=== PATIENT | female | born 1970 | race Asian ===

== ENCOUNTER 2018-05-03 11:35 | Outpatient (REF) | payer BC, SELFPAY ==
[2018-05-03 12:44] LABS: ALT 19 U/L (12-78); AST 17 U/L (15-37); Albumin 3.6 g/dL (3.4-5.0); Alkaline Phosphatase 65 U/L (46-116); Anion Gap 7.3 mmol/L (3-11); BUN 15 mg/dL (7-18); Bilirubin, Total 0.4 mg/dL (0.2-1.0); CO2 28.7 mmol/L (21.0-32.0); CREATININE 0.73 mg/dL (0.55-1.02); Calcium 9.1 mg/dL (8.5-10.1); Chloride 106 mmol/L (98-107); Glucose 86 mg/dL (70-100); Sodium 142 mmol/L (136-145); Total Protein 7.3 g/dL (6.4-8.2)
[2018-05-04 10:31] LABS: Hepatitis C Ab w Rflx HCV PCR Negative (NEGAT)
[2018-05-04 11:15] LABS: HIV-1/2 Ag & Ab Screen Negative (NEGAT)
[2018-05-04 11:18] LABS: Hepatitis B Surface Ag Negative (NEGAT)
[2018-05-04 11:22] LABS: HBs Antibody, Quant 37.7 mIU/mL; Hepatitis B Surface Ab Positive
[2018-05-05 10:35] LABS: Hepatitis A IgM Ab Negative (Negative)
== END 2018-05-03 11:55 ==
LOC: NCHCN 11:35
PROVIDERS: PCP Nurse Practitioner; Visit Provider Nurse Practitioner
DX: Z11.59 Encounter for screening for other viral diseases (principal); Z11.4 Encounter for screening for human immunodeficiency virus [HIV]; Z13.228 Encounter for screening for other metabolic disorders
CPT/HCPCS: 80053; 86706; 86803; 87340; 87389; 86709

== ENCOUNTER 2018-11-06 08:52 | Outpatient (REF) | payer BC, SELFPAY ==
--- NOTE | 2018-11-06 08:15 | PAPFT_PTH ---
PATIENT: Nate Trevizo LOC: [facility] U#:[id number] AGE/SX: 48/F ROOM: RE11/06/[address]: REJI Rodriguez : 1970 BED: DIS: 11/06/2018 SPEC #: [id number] RECD: 11/06/18 13:04 STATUS: MARIANNEVaishali REJolie #: [id number] AMBER: 11/06/18 08:[address]: Laura Lloyd DEPT: [facility] Cytology RECD BY: Karine Woodard ENTERED: 11/06/18 13:04 SP TYPE: PAPFT OTHR DR: Angela Apple Tissues: 1 - CX/ENDOCX FOR PAP SMEARS Procedures: PAP THIN PREP/UVM Screening HPV DNA PROBE Comments: [id number]
== END 2018-11-06 09:12 ==
LOC: LBN 08:52
PROVIDERS: PCP Nurse Practitioner; Visit Provider Nurse Practitioner Family
DX: Z12.4 Encounter for screening for malignant neoplasm of cervix (principal); Z11.51 Encounter for screening for human papillomavirus (HPV)
CPT/HCPCS: 88142; 87624

== ENCOUNTER 2019-04-23 10:23 | Outpatient (REF) | payer BC, SELFPAY | END 2019-04-23 10:43 | LOC: LBN 10:23 | PROVIDERS: PCP Nurse Practitioner; Visit Provider Nurse Practitioner Family | DX: R30.0 Dysuria (principal) | CPT/HCPCS: 87086 ==

== ENCOUNTER 2019-05-01 02:07 | Outpatient (CLI) | payer BC, SELFPAY ==
--- NOTE | 2019-05-01 11:55 | DI.MAMMO_ITS ---
EXAM: MG MAMMO SCREENING CLINICAL HISTORY: SCREENING, Z12.39. TECHNIQUE: Bilateral full field digital CC and MLO mammographic images were obtained with 3D tomosyn thesis and utilizing computer aided detection (CAD). COMPARISON: Available for comparison. FINDINGS: Masses/Architectural Distortion: None seen. Microcalcifications: No suspicious pleomorphic-type are seen. Skin Thickening/Nipple Retraction: None. IMPRESSION: 1. No significant interval change with no specific features of malignancy noted. 2. Unless there is more urgent need, screening mammography is recommended, as per [employer] guidelines. ACR BI-RAD Category- 1 Negative Breast Density - Category C - Heterogeneously dense The mammogram demonstrates the patient's breast tissue is dense. Dense breast tissue is very common a nd is not abnormal but dense breast tissue can make it harder to find cancer on a mammogram. Also, de nse breast tissue may increase their breast cancer risk. This information about the result of the [facility] mogram report was provided to the patient to raise their awareness. Use this report when you speak wi th the patient about their risks for breast cancer, which includes their family history. At that time , you may recommend for more screening tests (Ultrasound or MRI) as they might be useful based on the ir risk. A negative radiographic report should not delay biopsy if a dominant or clinically suspicious mass is present. Up to ten percent of cancers are not identified on mammography. A negative report may reinforce clinical impression. Adenosis and dense breasts may obscure an underlying neoplasm. False positive reports average 6 to 10%. Patient will receive a letter notifying them of these results.
== END 2019-05-01 02:27 ==
PROVIDERS: PCP Nurse Practitioner; Visit Provider Nurse Practitioner
DX: Z12.31 Encounter for screening mammogram for malignant neoplasm of breast (principal)
CPT/HCPCS: 77063; 77067

== ENCOUNTER 2020-05-07 12:07 | Outpatient (REF) | payer BC, SELFPAY ==
[2020-05-07 16:05] LABS: HCT 39.1 % (36.0-46.0); HGB 13.4 g/dL (11.2-15.7); MCHC 34.3 % (32.0-36.0); MCV 90.5 fL (80-95); MPV 11.3 fL (8.0-11.0); Platelet Count 212 10^3/uL (130-400); RBC 4.32 10^6/uL (3.93-5.22); RDW 12.2 % (11.7-14.6); RDW-SD 40.5 fL; WBC 4.91 10^3/uL (4.4-10.8)
[2020-05-07 16:25] LABS: TSH (W/Ref FT4) 1.51 uIU/mL (0.36-3.74)
[2020-05-07 16:41] LABS: Hemoglobin A1C 5.9 % (<5.7)
== END 2020-05-07 12:08 | disposition home or self-care (01) ==
LOC: NCHCN 12:07
PROVIDERS: PCP Nurse Practitioner; Visit Provider Nurse Practitioner
DX: L65.9 Nonscarring hair loss, unspecified (principal); R73.03 Prediabetes
CPT/HCPCS: 85027; 83036; 84443

== ENCOUNTER 2020-09-04 07:21 | Day surgery (SDC) | payer BC, SELFPAY ==
[2020-09-04 07:44] VITALS: BP 114/71; PULSE 68; RESP 16; TEMP 36.2; O2SAT 98
[2020-09-04] MEDS: Lactated Ringers 1,000 ML 80 ML IV (08:00)
--- NOTE | 2020-09-04 08:32 | W.ANESPRE ---
General Info Date of Service Date Performed: 09/04/20 Height: 5 ft 2 in Weight: 57.4 kg Body Mass Index (BMI): 23.1 Surgical Procedure: Operation Date: 09/04/20 08:35 Proposed Procedures Side Surgeon p Seferino Mendoza MD Meds Allergies and Home Medications Allergies Allergy/AdvReac Type Severity Reaction Status Date / Time No Known Allergies Allergy Verified 09/04/20 07:35 Home Medication Medication Instructions Recorded medroxyprogesterone 150 mg/mL 150 mg IM 12weeks #1 syringe 03/31/20 intramuscular suspension bisacodyl 5 mg tablet,delayed 5 mg PO ONCE #4 tab 08/28/20 release polyethylene glycol 3350 17 238 g PO ONCE #238 g 08/28/20 gram/dose oral powder Current Visit Medications: Current Medications Generic Name Dose Route Start Last Admin Trade Name Freq PRN Reason Stop Dose Admin Ringer's Solution 1,000 mls @ 80 mls/hr 09/04/20 06:00 09/04/20 08:00 IV 10/03/20 23:59 80 mls/hr INFUSION PAUL Administration IV Miscellaneous Supplies 1 each 09/04/20 06:00 Iv Access IV 10/03/20 23:59 DIRECTED PAUL Sodium Chloride 0 ml 09/04/20 06:00 Normal Saline Flush 10 Ml Syr IV 10/03/20 23:59 PRN PRN Sodium Chloride 0 ml 09/04/20 06:00 Normal Saline 10 Ml Vial IJ 10/03/20 23:59 DIRECTED PRN Sterile Water 0 ml 09/04/20 06:00 Water,Injection,Sterile 10 Ml Vial IJ 10/03/20 23:59 DIRECTED PRN PFSH Active Problems Active Problems: Problem Status Onset Code Prediabetes R73.03 Screening for colon cancer Z12.11 Contraceptive surveillance 06/03/14 Z30.40 Asymptomatic varicose veins of both lower extremities 10/24/17 I83.93 Medical History Medical History Asymptomatic varicose veins of both lower extremities (10/24/17) Contraceptive surveillance (06/03/14) Tobacco Smoking/Tobacco Use Status: Never Alcohol Alcohol Intake: never Substance Use Substance use type: does not use Prental History History 2 Para Hx # Term Pregnancies 2 Multiple births Hx # Pregnancies Ectopic pregnancies AB induced Hx Number of Living Children AB spontaneous Vital Signs and Lab Results Vital Signs Most Recent Vital Signs in EMR: Most Recent Vital Signs Temp Pulse Resp BP Pulse Ox 36.2 C L 68 16 114/71 98 09/04/20 07:44 09/04/20 07:44 09/04/20 07:44 09/04/20 07:44 09/04/20 07:44 Point of Care Results Point of Care Results: POC- Test(urine) Negative 09/04/20 08:07 Lab Results Blood Type / Crossmatch: No Data to Display Complete Blood Count: No Data to Display Complete Metabolic Panel: No Data to Display Liver Function Panel: No Data to Display Coagulation Panel: No Data to Display Cardiac Panel: No Data to Display Arterial Blood Gas: No Data to Display Venous Blood Gas: No Data to Display Pancreas Panel: No Data to Display Thyroid Panel: No Data to Display Infectious Disease: No Data to Display Blood Cultures: No Data to Display Toxicology Panel: No Data to Display Panel: No Data to Display Anesthesia Assessment and Plan Anesthesia History Personal History: No History of Anesthesia Complications Family History: No Family History of Anesthesia Complications Exercise Tolerance Exercise Tolerance: Metabolic Equivalents>4 Pertinent Negatives Pertinent Negatives: No Symptoms of GERD Cardiac & Pulmonary Exam Cardiac Exam: Normal S1/S2 Heart Sounds Pulmonary Exam: Clear Bilateral Breath Sounds Airway Exam Known Difficult Airway: No Mallampati Class: 3 Mouth Opening: Normal (> 3cm) Thyromental Distance: Greater than 3 cm Neck Range of Motion: Full ROM Neck Circumference: Normal Teeth Condition: Normal Dentition ASA Classification ASA Score: ASA 2 Emergency Case?: No NPO Status NPO Status: NPO Clears >2 hours, Solids >8 hours Status Status: Negative HCG Anesthesia Plan Resuscitation Status: Full Code Anesthesia Technique: General Anesthesia Airway Planned: Natural Airway Monitors Used: Standard Monitors
[2020-09-04 08:36] VITALS: BMI 23.1
--- NOTE | 2020-09-04 08:52 | NUR.NOTE ---
Nursing Note: 0845 MD and Anesthesia in patient room to discuss procedure. Language line initiated again; however Togolese dialect/library paraprofessional accent not clearly understood by patient. Patient able to converse to an extent in Turkish to answer questions; and spouse in room as well. Patient shook head in understanding then signed consent with MD and anesthesia.
[2020-09-04 09:47] VITALS: BP 102/65; PULSE 62; RESP 16; TEMP 36.3; O2SAT 95
--- NOTE | 2020-09-04 09:49 | W.ANESPOSTOP ---
Postoperative Evaluation Date, Time and Location Date Performed: 09/04/20 Time Performed: 09:51 Patient Location: Day Surgery Unit Vital Signs Most Recent Imported Vital Signs: Most Recent Vital Signs Temp Pulse Resp BP Pulse Ox 36.2 C L 68 16 114/71 98 09/04/20 07:44 09/04/20 07:44 09/04/20 07:44 09/04/20 07:44 09/04/20 07:44 Most Recent Manually Entered Vital Signs: Adult Blood Pressure: 102/65 Heart Rate: 63 Respirations: 16 Oxygen Saturation (%): 95 Temperature (C): 36.3 C Pain Score (0-10 Scale): 0 Pain Score Most Recent Pain Score: Most Recent Pain Score Pain Level 0 09/04/20 07:44 Assessment Mental Status: Awake (Alert & Oriented to Patient Baseline) Airway and Respiratory Function: Patent airway with normal (patient baseline) respiratory exam Cardiovascular Function: Hemodynamically Stable Hydration Status: Adequately Hydrated Nausea & Vomiting: No Nausea or Vomiting Pain: Pt. Denies Any Pain Peripheral Nerve Block: Patient did not receive a nerve block
[2020-09-04 09:53] VITALS: BP 102/65; PULSE 63; RESP 16; TEMPC 36.3; O2SAT 95
--- NOTE | 2020-09-04 09:56 | W.COLOREPORT ---
Date of service: 09/04/20 Time of Service: 09:56 Colonoscopy Report Date of procedure: 09/04/20 Pre-op diagnosis general: colorectal cancer screening Post-op diagnosis procedure note: same Procedure: Colonoscopy Surgeon: Micheal Mendoza Anesthesia Type: MAC Estimated blood loss (mL): 0 Pathology: none sent Complications: None Disposition: same day Indications: 50yo female here for first colonoscopy. No complaints of bleeding, abdominal pain, weight loss, or change in bowel habits. She denies family history of colon cancer. Prep: Miralax/Dulcolax Retraction Time: >15 minute Findings: A subcentimeter polyp was seen on entry, but could not be found again on withdrawal. Procedure Description: After informed consent was obtained, the patient was taken to the procedure room and placed in a left decubitus position. Monitors were applied and a time out was done. The patient's name, date of , procedure, allergies to medications, and metal in their body were reviewed. The patient was then sedated. Once sedated and comfortable, a digital rectal exam was done. External exam showed a normal anus. Internal exam revealed normal sphincter tone, and no palpable masses or gross blood. The colonoscope was then introduced and advanced to the cecum under direct visualization with minimal difficulty, some manual abdominal pressure was applied. A small subcentimeter polyp was seen in the left colon on entry. In the cecum, the ileocecal valve and appendiceal orifice were visualized. The prep was good. The scope was then slowly withdrawn over 15 minutes in a circumferential manner to the rectum. In doing so, the previously seen polyp could not be identified, even with multiple passes over the area of interest. There was no diverticulosis noted. The mucosa is pink and healthy. In the rectum, the scope was retroflexed, and no internal hemorrhoids were noted. The scope was straightened and withdrawn from the anus. The patient tolerated the procedure well, and there were no immediate complications. The patient was taken to the Day Surgery Unit recovery area in good condition. Follow up: 3 years, or new symptoms
[2020-09-04 10:13] VITALS: BP 112/69; PULSE 66; RESP 16; TEMP 36.4; O2SAT 99
== END 2020-09-04 10:25 | disposition home or self-care (01) ==
PROVIDERS: PCP Nurse Practitioner; Visit Provider Surgery
PROC: 0DJD8ZZ Inspection of Lower Intestinal Tract, Via Natural or Artificial Opening Endoscopic (ICD-10-PCS; CPT 45378; principal; 2020-09-04 08:30)
DX: Z12.11 Encounter for screening for malignant neoplasm of colon (principal); R73.03 Prediabetes; K63.5 Polyp of colon
CPT/HCPCS: 45378; 81025

== ENCOUNTER 2021-03-19 03:08 | Outpatient (CLI) | payer BC, SELFPAY ==
--- NOTE | 2021-03-19 08:00 | DI.MAMMO_ITS ---
Exam(s) MAMMO SCREENING EXAM: MAMMO SCREENING CLINICAL HISTORY: screening TECHNIQUE: Bilateral full field digital CC and MLO mammographic images were obtained with 3D tomosyn thesis and utilizing computer aided detection (CAD). COMPARISON: Available for comparison. FINDINGS: Masses/Architectural Distortion: None seen. Microcalcifications: No suspicious pleomorphic-type are seen. Skin Thickening/Nipple Retraction: None. IMPRESSION: 1. No significant interval change with no specific features of malignancy noted. 2. Unless there is more urgent need, screening mammography is recommended, as per [employer] guidelines. BI-RADS Category 1 - Negative Breast Density - Category C - Heterogeneously dense Breast density category C or D implies that the patient has dense breast tissue. Dense breast tissue is very common and is not abnormal but dense breast tissue can make it harder to find cancer on a ma mmogram. Also, dense breast tissue may increase their breast cancer risk. This information about the result of the mammogram report was provided to the patient to raise their awareness. Use this report when you speak with the patient about their risks for breast cancer, which includes their family hist ory. At that time, you may recommend for more screening tests (Ultrasound or MRI) as they might be us eful based on their risk. A negative radiographic report should not delay biopsy if a dominant or clinically suspicious mass is present. Up to ten percent of cancers are not identified on mammography. A negative report may reinforce clinical impression. Adenosis and dense breasts may obscure an underlying neoplasm. False positive reports average 6 to 10%. Patient will receive a letter notifying them of these results.
== END 2021-03-19 03:28 ==
PROVIDERS: PCP Nurse Practitioner; Visit Provider Nurse Practitioner Family
DX: Z12.31 Encounter for screening mammogram for malignant neoplasm of breast (principal); R92.8 Other abnormal and inconclusive findings on diagnostic imaging of breast
CPT/HCPCS: 77063; 77067

== ENCOUNTER 2022-03-30 14:50 | Outpatient (REF) | payer BC, SELFPAY ==
--- NOTE | 2022-03-30 14:20 | PAPFT_PTH ---
PATIENT: Nate Trevizo LOC: [facility] U#:[id number] AGE/SX: 51/F ROOM: RE03/30/[address]: Anne Sparks NP : 1970 BED: DIS: 03/30/2022 SPEC #: [id number] RECD: 03/30/22 15:11 STATUS: JULIOCESAR CORLEY #: [id number] AMBER: 03/30/22 14:[address]: Anne Sparks NP DEPT: [facility] Cytology RECD BY: Karine Woodard ENTERED: 03/30/22 15:12 SP TYPE: PAPFT OTHR DR: Angela Apple Tissues: 1 - CX/ENDOCX FOR PAP SMEARS Procedures: PAP THIN PREP/UVM Screening HPV DNA PROBE Comments: [id number]
== END 2022-03-30 14:51 | disposition home or self-care (01) ==
LOC: LBN 14:50
PROVIDERS: PCP Nurse Practitioner; Visit Provider Nurse Practitioner Women's Health
DX: Z12.4 Encounter for screening for malignant neoplasm of cervix (principal); Z11.51 Encounter for screening for human papillomavirus (HPV)
CPT/HCPCS: 88142; 87624

== ENCOUNTER 2022-04-14 02:47 | Outpatient (CLI) | payer BC, SELFPAY ==
--- NOTE | 2022-04-14 08:30 | DI.MAMMO_ITS ---
Exam(s) MAMMO SCREENING EXAM: MAMMO SCREENING CLINICAL HISTORY: screening TECHNIQUE: Mammograms were interpreted according to the usual protocol including computer analysis w [employer] CAD system, tomosynthesis and C-view imaging. COMPARISON: 2014 through 2021 FINDINGS: The breasts are composed of heterogeneously dense fibroglandular densities, Breast Density category C . No suspicious masses or suspicious microcalcifications are seen. No skin thickening or abnormal axillary lymph nodes are seen. There has been no significant change from prior exams. IMPRESSION: BI-RADS Category 1, Negative mammogram. Yearly screening mammography is recommended. Breast Density Category C, heterogeneously Dense. The mammogram demonstrates the patient's breast tissue is dense. Dense breast tissue is very common a nd is not abnormal but dense breast tissue can make it harder to find cancer on a mammogram. Also, de nse breast tissue may increase breast cancer risk. This information about the result of the mammogram report was provided to the patient to raise their awareness. Use this report when you speak with the patient about their risks for breast cancer, which includes their family history. At that time, you may recommend additional screening tests (Ultrasound or MRI) as they might be useful based on their r isk. A negative radiographic report should not delay biopsy if a dominant or clinically suspicious mass is present. Up to ten percent of cancers are not identified on mammography. A negative report may reinforce clinical impression. Adenosis and dense breasts may obscure an underlying neoplasm. False positive reports average 6 to 10%.
== END 2022-04-14 03:07 ==
PROVIDERS: PCP Nurse Practitioner; Visit Provider Nurse Practitioner Women's Health
DX: Z12.31 Encounter for screening mammogram for malignant neoplasm of breast (principal); R92.8 Other abnormal and inconclusive findings on diagnostic imaging of breast
CPT/HCPCS: 77063; 77067

== ENCOUNTER 2022-05-06 16:52 | Outpatient (REF) | payer BC, SELFPAY ==
[2022-05-06 15:24] LABS: Abs Immature Grans 0.01 10^3/uL (0.0-0.06); Absolute Basophil Count 0.05 10^3/uL (0.0-0.2); Absolute Eosinophil Count 0.16 10^3/uL (0.0-0.7); Absolute Lymphocyte Count 1.33 10^3/uL (1.2-3.4); Absolute Neutrophil Count 3.19 10^3/uL (1.2-6.7); Eosinophils % 3.1; HCT 37.8 % (36.0-46.0); HGB 12.5 g/dL (11.2-15.7); Immature Grans % 0.2; Lymphocytes % 25.9; MCH 29.4 pg (27.0-33.0); MCHC 33.1 % (32.0-36.0); MCV 89 fL (80-95); MPV 11.5 fL (8.0-11.0); Monocytes % 7.8; Platelet Count 188 10^3/uL (130-400); RBC 4.25 10^6/uL (3.93-5.22); RDW 12.4 % (11.7-14.6); RDW-SD 40.7 fL; WBC 5.14 10^3/uL (4.4-10.8)
[2022-05-06 15:46] LABS: ALT 18 U/L (14-59); AST 17 U/L (15-37); Albumin 3.7 g/dL (3.4-5.0); Alkaline Phosphatase 56 U/L (46-116); Anion Gap 6.6 mmol/L (3-11); BUN 14 mg/dL (7-18); Bilirubin, Total 0.3 mg/dL (0.2-1.0); CO2 26.4 mmol/L (21.0-32.0); CREATININE 0.7 mg/dL (0.55-1.02); Calcium 8.9 mg/dL (8.5-10.1); Calculated LDL 83 mg/dL (<100); Chloride 107 mmol/L (98-107); Cholesterol 189 mg/dL (<200); Estimated GFR 103.35 (mL/min/1.73m2); Glucose 88 mg/dL (74-106); HDL Cholesterol 93 mg/dL (40-60); Potassium 3.8 mmol/L (3.5-5.1); Sodium 140 mmol/L (136-145); TSH (W/Ref FT4) 0.94 uIU/mL (0.36-3.74); Triglyceride 67 mg/dL (<150)
[2022-05-06 15:56] LABS: Hemoglobin A1C 5.9 % (<5.7)
== END 2022-05-06 16:53 | disposition home or self-care (01) ==
LOC: NCHCN 16:52
PROVIDERS: PCP Nurse Practitioner; Visit Provider Nurse Practitioner Family
DX: R73.03 Prediabetes (principal); R06.02 Shortness of breath; R07.9 Chest pain, unspecified; Z86.16 Personal history of COVID-19
CPT/HCPCS: 80053; 80061; 83036; 84443; 85025

== ENCOUNTER 2022-05-10 10:19 | Outpatient (CLI) | payer BC, SELFPAY ==
--- NOTE | 2022-05-10 | DI.RAD_ITS ---
Exam(s) XR CHEST 2V PA LATERAL EXAM: XR CHEST 2V PA LATERAL CLINICAL HISTORY: CHEST PAIN R07.9 SOB R06.02 GREATER 6 MONTH, STARTED DURING COVID ILLNESS TECHNIQUE: 2D digital imaging was performed of the chest. Two images were obtained. PA and lateral views were obtained. COMPARISON: No exams were available for comparison FINDINGS: MEDIASTINUM: Normal. HEART: Normal. PULMONARY VASCULATURE: Normal. LUNGS: Clear. PLEURAL SPACE: No pleural effusion or pneumothorax. BONE:Within normal limits for the patient's age. OTHER FINDINGS:Normal. IMPRESSION: No acute pulmonary findings. DATA REPOSITORY: RADIATION DOSE DELIVERED:
== END 2022-05-10 10:39 ==
LOC: DI 10:19
PROVIDERS: PCP Nurse Practitioner; Visit Provider Nurse Practitioner Family
DX: R07.89 Other chest pain (principal); R06.02 Shortness of breath
CPT/HCPCS: 71046

== ENCOUNTER 2022-06-09 01:33 | Outpatient (CLI) | payer BC, SELFPAY ==
--- NOTE | 2022-06-09 13:47 | DI.US_ITS ---
APPROVED REPORT EXAM: Comprehensive 2D, Doppler, and color-flow Echocardiogram Patient Location: Out-Patient Geodetic Surveyor Technologist: Robbie Rm RDMS, RVT Other Information Study Quality: Good Conclusion Normal left ventricular wall thickness and chamber size. Estimated ejection fraction is 60 to 65%. Wall motion is normal Normal right ventricular size and systolic function Left atrium is moderately dilated. The right atrium is mildly dilated Mildly thickened mitral leaflets. There is moderate eccentric mitral regurgitation Normal tricuspid valve with moderate regurgitation. Estimated right ventricular systolic pressure is 27 mmHg Wall motion Left Ventricle The left ventricle is normal size. The left ventricular systolic function is normal. The left ventric ular ejection fraction is within the normal range. There is normal left ventricular wall thickness. T here is normal LV segmental wall motion. There is no ventricular septal defect visualized. LVEF is 60 -65%. Right Ventricle The right ventricle is normal size. The right ventricular systolic function is normal. The RVSP is 27 .1 mmHg. Atria Left atrium is moderately dilated. Right atrium is mildly dilated. The interatrial septum is intact w ith no evidence for an atrial septal defect. Aortic Valve The aortic valve is normal in structure. Aortic valve is trileaflet. There is no aortic valvular sten osis. No aortic regurgitation is present. Mitral Valve Mitral valve leaflets are mildly thickened. No evidence of mitral valve stenosis. Moderate mitral re gurgitation. Mitral regurgitation jet is eccentrically directed. Tricuspid Valve The tricuspid valve is normal in structure. There is no tricuspid valve stenosis. Moderate tricuspid regurgitation. Pulmonic Valve The pulmonary valve is normal in structure. There is no pulmonic valvular stenosis. Trace pulmonic r egurgitation. Great Vessels The aortic root is normal in size. Ascending aorta is normal in caliber. Aortic arch is normal in gagan iber. The IVC is normal in size and collapses >50% with inspiration. Pericardium There is no pericardial effusion. 2D Dimensions IVSD d PLAX 0.73 cm F: 0.6-1.0 LV Vol A2C d MOD 104.6 mL LVPW d PLAX 0.79 cm F: 0.6 - 1.0 LV Vol A4C d MOD 119.7 mL LVID d PLAX 4.68 cm F: 3.8 - 5.2 LA vol/ BSA A4C s A-L 41.1 mL/m2 LVDs 3.00 cm F: 2.2 - 3.5 LA Area A4C s MOD 21.95 cm2 Ao Root d 2.93 cm F: 2.7 - 3.3 LA Area A2C s MOD 20.34 cm2 Ao Asc Diam d 2.74 cm F: 2.3 - 3.1 LV EF A4C MOD 64.3 % LV EF Teichholz 64.6 % LV EF A2C MOD 61.6 % LVEF (Pascual's) 61.15 % F: 54 - 74 LV EF Biplane MOD 61.1 % LV Volume 112.95 mL F: 46 - 106 SV 69.07 mL LV Volume Index 71.94 mL/m2 F: 29 - 61 LV Vol Biplane MOD 113.0 mL FS 35.20 % M-Mode TAPSE 2.27 cm (M/F) >1.7 LV Diastology MV E' medial 0.105 (>0.07 m/s) E/A Ratio 0.9 LV E/e MED 9.35 (<14) MV E Vmax 0.98 (0.4-1.3 m/s) MV E' lateral 0.087 (>0.1 m/s) MV A Vmax 1.15 (0.4-1.3 m/s) LV E/e LAT 11.30 (<14) MV E/A Ratio 0.84 MV E/E' medial 9.37 MV E/E' lateral 11.35 Aortic Valve LVOT Area 2.67 cm2 AoV Area Vmax 2.17 cm2 LVOT Vmax 1.07 m/s AoV Area/ BSA (Vmax) 1.40 cm2/m2 LVOT Mean Terrence. 0.74 m/s PILO Mean Terrence. 2.04 cm2 LVOT Peak Grad 4.5 mmHg PILO Mean Terrence. Index 1.31 cm2/m2 LVOT Mean Grad 2.5 mmHg LVOT VTI 0.238 m LVOT Diam s 1.80 cm AoV Vmax 1.31 m/s Velocity Ratio 0.82 AoV Mean Terrence. 0.98 m/s AoV Peak Grad 6.9 mmHg LVOT SV 63.47 mL AoV Mean Grad 4.4 mmHg AoV VTI 0.308 m AoV Area VTI 2.06 cm2 AoV Area/ BSA (VTI) 1.36 cm/m2 Mitral Valve MV DT 370 (160-240 msec) MR Vmax 4.99 m/s MV PHT 107 msec MR VTI 1.795 m MV Area PHT 2.05 cm2 MR Peak Grad 99.5 mmHg MV VTI 0.518 m MR Mean Grad 72.2 mmHg MV Area VTI 1.23 (4.0-6.0 cm2) Pulmonary Valve PV Vmax 0.91 (0.5-1.5 m/s) RVOT Peak Gr. 2.67 mmHg PV Peak Grad 3.3 mmHg RVOT Mean Gr. 1.30 mmHg PV Mean Grad 1.8 mmHg RVOT VTI 0.201 m PV VTI 0.208 m RVOT Vmax 0.82 m/s Tricuspid Valve TR Peak Grad 23.1 mmHg TR Vmax 2.40 m/s RA Pressure 3.00 mmHg RVSP (TR) 27.1 mmHg
== END 2022-06-09 01:53 ==
LOC: DI 01:33
PROVIDERS: PCP Nurse Practitioner; Visit Provider Nurse Practitioner Family
DX: I51.7 Cardiomegaly (principal)
CPT/HCPCS: 93306

== ENCOUNTER → 2023-06-13 04:12 | Outpatient (CLI) | payer BC, SELFPAY ==
--- NOTE | 2023-06-13 07:45 | DI.MAMMO_ITS ---
Exam(s) MAMMO SCREENING EXAM: MAMMO SCREENING CLINICAL HISTORY: screening TECHNIQUE: Bilateral full field digital CC and MLO mammographic images were obtained with 3D tomosyn thesis and utilizing computer aided detection (CAD). COMPARISON: Available for comparison. FINDINGS: Masses/Architectural Distortion: None seen. Microcalcifications: No suspicious pleomorphic-type are seen. Skin Thickening/Nipple Retraction: None. IMPRESSION: 1. No significant interval change with no specific features of malignancy noted. 2. Unless there is more urgent need, screening mammography is recommended, as per [place] [employer] guidelines. BI-RADS Category 1 - Negative Breast Density - Category C - Heterogeneously dense Breast density category C or D implies that the patient has dense breast tissue. Dense breast tissue is very common and is not abnormal but dense breast tissue can make it harder to find cancer on a ma mmogram. Also, dense breast tissue may increase their breast cancer risk. This information about the result of the mammogram report was provided to the patient to raise their awareness. Use this report when you speak with the patient about their risks for breast cancer, which includes their family hist ory. At that time, you may recommend for more screening tests (Ultrasound or MRI) as they might be us eful based on their risk. A negative radiographic report should not delay biopsy if a dominant or clinically suspicious mass is present. Up to ten percent of cancers are not identified on mammography. A negative report may reinforce clinical impression. Adenosis and dense breasts may obscure an underlying neoplasm. False positive reports average 6 to 10%. Patient will receive a letter notifying them of these results.
== END ==
PROVIDERS: Visit Provider Nurse Practitioner Women's Health
DX: Z12.31 Encounter for screening mammogram for malignant neoplasm of breast (principal)
CPT/HCPCS: 77063; 77067

== ENCOUNTER 2023-07-25 18:10 | Outpatient (REF) | payer BC, SELFPAY ==
[2023-07-25 18:18] LABS: Abs Immature Grans 0.01 10^3/uL (0.0-0.06); Absolute Basophil Count 0.04 10^3/uL (0.0-0.2); Absolute Eosinophil Count 0.12 10^3/uL (0.0-0.7); Absolute Lymphocyte Count 1.52 10^3/uL (1.2-3.4); Absolute Monocyte Count 0.51 10^3/uL (0.1-0.8); Absolute Neutrophil Count 3.25 10^3/uL (1.2-6.7); Basophils % 0.7 %; Eosinophils % 2.2 %; HCT 36.8 % (36.0-46.0); HGB 12.1 g/dL (11.2-15.7); Immature Grans % 0.2 %; Lymphocytes % 27.9 %; MCH 29.3 pg (27.0-33.0); MCHC 32.9 % (32.0-36.0); MCV 89 fL (80-95); MPV 11.4 fL (8.0-11.0); Monocytes % 9.4 %; Neutrophils % 59.6 %; Platelet Count 174 10^3/uL (130-400); RBC 4.13 10^6/uL (3.93-5.22); RDW 12.7 % (11.7-14.6); RDW-SD 41.7 fL; WBC 5.45 10^3/uL (4.4-10.8)
[2023-07-25 18:20] LABS: ESR 4 mm/hr (0-30)
[2023-07-25 18:30] LABS: Hemoglobin A1C 6.2 % (<5.7)
[2023-07-25 18:58] LABS: ALT 24 U/L (14-59); AST 16 U/L (15-37); Alkaline Phosphatase 60 U/L (46-116); Anion Gap 9.4 mmol/L (3-11); BUN 18 mg/dL (7-18); Bilirubin, Total 0.2 mg/dL (0.2-1.0); CO2 26.6 mmol/L (21.0-32.0); CREATININE 0.8 mg/dL (0.55-1.02); Calcium 9.1 mg/dL (8.5-10.1); Chloride 106 mmol/L (98-107); Ferritin 13 ng/mL (8-252); Glucose 88 mg/dL (74-106); Potassium 4.2 mmol/L (3.5-5.1); Sodium 142 mmol/L (136-145); Total Protein 7.1 g/dL (6.4-8.2)
[2023-07-25 19:07] LABS: C-Reactive Protein < 0.50 mg/dL (<or=0.5)
[2023-07-25 19:28] LABS: Iron 40 ug/dL (50-170); Total Iron Binding Capacity 356 ug/dL (250-450); Transferrin Sat 11 % (15-50)
[2023-07-27 12:45] LABS: Lyme Ab w Rflx to Lyme Confirm Negative (Negative)
== END 2023-07-25 18:11 | disposition home or self-care (01) ==
LOC: NCHCN 18:10
PROVIDERS: Visit Provider Nurse Practitioner Family
DX: M79.18 Myalgia, other site (principal)
CPT/HCPCS: 80053; 85652; 82728; 83036; 83540; 83550; 85025; 86140; 86618

== ENCOUNTER 2024-07-10 00:02 | Outpatient (CLI) | payer BC, SELFPAY ==
--- NOTE | 2024-07-10 07:30 | DI.MAMMO_ITS ---
Exam(s) MAMMO SCREENING EXAM: MAMMO SCREENING CLINICAL HISTORY: screening TECHNIQUE: Mammograms were interpreted according to the usual protocol including computer analysis w [employer] CAD system, tomosynthesis and C-view imaging. COMPARISON: 2017 through 2023 FINDINGS: The breasts are composed of heterogeneously dense fibroglandular densities, Breast Density category C . No suspicious masses or suspicious microcalcifications are seen. No skin thickening or abnormal axillary lymph nodes are seen. There has been no significant change from prior exams. IMPRESSION: BI-RADS Category 1, Negative mammogram. Yearly screening mammography is recommended. Breast Density Category C, heterogeneously Dense. The mammogram demonstrates the patient's breast tissue is dense. Dense breast tissue is very common a nd is not abnormal but dense breast tissue can make it harder to find cancer on a mammogram. Also, de nse breast tissue may increase breast cancer risk. This information about the result of the mammogram report was provided to the patient to raise their awareness. Use this report when you speak with the patient about their risks for breast cancer, which includes their family history. At that time, you may recommend additional screening tests (Ultrasound or MRI) as they might be useful based on their r isk. A negative radiographic report should not delay biopsy if a dominant or clinically suspicious mass is present. Up to ten percent of cancers are not identified on mammography. A negative report may reinforce clinical impression. Adenosis and dense breasts may obscure an underlying neoplasm. False positive reports average 6 to 10%.
== END 2024-07-10 00:22 ==
PROVIDERS: PCP Nurse Practitioner Family; Visit Provider Nurse Practitioner Women's Health
DX: Z12.31 Encounter for screening mammogram for malignant neoplasm of breast (principal); R92.333 Mammographic heterogeneous density, bilateral breasts
CPT/HCPCS: 77063; 77067

== ENCOUNTER 2025-02-04 13:03 | Outpatient (REF) | payer BC, SELFPAY ==
[2025-02-04 16:16] LABS: HCT 38.6 % (36.0-46.0); HGB 12.8 g/dL (11.2-15.7); MCH 29.9 pg (27.0-33.0); MCHC 33.2 % (32.0-36.0); MCV 90 fL (80-95); MPV 11.6 fL (8.0-11.0); Platelet Count 205 10^3/uL (130-400); RBC 4.28 10^6/uL (3.93-5.22); RDW 11.9 % (11.7-14.6); RDW-SD 39.3 fL; WBC 4.51 10^3/uL (4.4-10.8)
[2025-02-04 17:27] LABS: ALT 22 U/L (10-49); AST 23 U/L (<34); Albumin 4.3 g/dL (3.4-5.0); Alkaline Phosphatase 76 U/L (46-116); Anion Gap 6.9 mmol/L (3-11); BUN 19 mg/dL (9-23); Bilirubin, Total 0.40 mg/dL (0.2-1.2); CO2 28.1 mmol/L (20.0-31.0); Calcium 9.5 mg/dL (8.3-10.6); Chloride 107 mmol/L (98-107); Cholesterol 211 mg/dL (<200); Glucose 83 mg/dL (74-106); HDL Cholesterol 93 mg/dL (>40); Hemoglobin A1C 5.6 % (<5.7); Potassium 4.1 mmol/L (3.5-5.1); Sodium 142 mmol/L (136-145); Total Protein 7.0 g/dL (5.7-8.2)
== END 2025-02-04 13:04 | disposition home or self-care (01) ==
LOC: NCHCN 13:03
PROVIDERS: PCP Nurse Practitioner Family; Visit Provider Nurse Practitioner Family
DX: Z00.00 Encounter for general adult medical examination without abnormal findings (principal)
CPT/HCPCS: 80053; 80061; 85027; 83036